=== PATIENT | female | born 1975 | race Caucasian/White ===

== ENCOUNTER 2017-04-22 13:07 | Emergency (ER) | payer BC ==
[~2017-04-22] VITALS: Ht 160 cm; Wt 84.4 kg
[~2017-04-22 13:07] MED LIST: AMOCLA500; ASPI81CH; BUPR100ER PO; CHOL10002; CIPRO500 MG PO; CYAN500; DOCU100; ESCI20; FISH1000; FOLI1; LAMO100 PO; LORA1 PO; MEDR10 PO; METF500 PO; METHYLFOLATE; METO25ER; OMEP10ER; ONDA4ODT; OXYC5; PROC5; PYRI100; Pristiq100 MG PO; ZOLP6.25
[2017-04-22] MEDS ORDERED: Augmentin 875-1 EACH PO (13:30)
== END 2017-04-22 13:33 | disposition home or self-care (01) ==
LOC: ER 13:07
DX: L03.313 Cellulitis of chest wall (principal); Z88.1 Allergy status to other antibiotic agents; Z88.8 Allergy status to other drugs, medicaments and biological substances; Z88.5 Allergy status to narcotic agent; Z79.899 Other long term (current) drug therapy; Z79.84 Long term (current) use of oral hypoglycemic drugs; Z79.82 Long term (current) use of aspirin; Z85.3 Personal history of malignant neoplasm of breast; Z87.891 Personal history of nicotine dependence; Z90.10 Acquired absence of unspecified breast and nipple
CPT/HCPCS: 99282

== ENCOUNTER → 2018-02-24 | Outpatient (CLI) | payer BC ==
[~2018-02-24] MED LIST changes: +Augmentin 875-1 EACH PO
== END | disposition home or self-care (01) ==
LOC: PLD 10:04 → LAB SHORT 10:04
DX: L57.0 Actinic keratosis (principal)
CPT/HCPCS: 88305

== ENCOUNTER → 2019-08-11 | Outpatient (CLI) | payer BC ==
[2019-08-12 11:22] LABS: Candida species (DNA Probe) Negative (NEGATIVE); G. vaginalis (DNA Probe) Negative (NEGATIVE); T. vaginalis (DNA Probe) Negative (NEGATIVE)
== END | disposition home or self-care (01) ==
LOC: LAB 11:45 → LAB SHORT 11:45
PROVIDERS: Obstetrics & Gynecology
DX: N76.0 Acute vaginitis (principal)
CPT/HCPCS: 87480; 87510; 87660

== ENCOUNTER → 2022-11-12 | Outpatient (CLI) | payer OTHER | END | disposition home or self-care (01) | LOC: LAB SHORT 12:46 → PLD 12:46 | DX: L82.0 Inflamed seborrheic keratosis (principal); Z85.3 Personal history of malignant neoplasm of breast | CPT/HCPCS: 88305 ==

== ENCOUNTER 2024-01-12 14:12 | Inpatient (IN) | payer OTHER ==
[~2024-01-12] VITALS: Ht 160 cm; Wt 75.8 kg
[~2024-01-12 14:12] MED LIST changes: -ASPI81CH; +ASPI81CH PO; -CHOL10002; -CYAN500; +CYAN500 PO; -DOCU100; +DOCU100 PO; +FISH OIL 1,0001 EA10 PO; -FISH1000; -LAMO100 PO; +Lamictal200 MG PO; -METHYLFOLATE; -METO25ER; +METO25ER PO; -OMEP10ER; +OMEP20ER PO; -PYRI100; +PYRI100 PO; +VITAMIN D31000 UNI1 PO
[2024-01-12 15:13] LABS: BASOPHILS ABSOLUTE AUTO 0.06 K/mm3 (0.00-0.23); BASOPHILS PERCENT AUTO 1 % (0-2); EOSINOPHILS ABSOLUTE AUTO 0.23 K/mm3 (0.00-0.68); EOSINOPHILS PERCENT AUTO 3 % (0-6); Hematocrit 36.8 % (33.0-51.0); Hemoglobin 12.5 g/dL (11.5-16.0); IMMATURE GRAN ABSOLUTE AUTO 0.14 K/mm3 (0.00-0.10); IMMATURE GRAN PERCENT AUTO 2 % (0-1); LYMPHOCYTES ABSOLUTE AUTO 2.54 K/mm3 (0.84-5.20); LYMPHOCYTES PERCENT AUTO 28 % (21-46); MONOCYTES ABSOLUTE AUTO 0.75 K/mm3 (0.16-1.47); MONOCYTES PERCENT AUTO 8 % (4-13); Mean Corpuscular HGB 29.9 pg (26.0-34.0); Mean Corpuscular Volume 88 fL (80-100); Mean Platelet Volume 8.6 fL (9.1-12.4); NEUTROPHILS ABSOLUTE AUTO 5.42 K/mm3 (1.96-9.15); NEUTROPHILS PERCENT AUTO 59 % (41-73); Platelet Count 285 K/mm3 (150-400); RDW Coefficient Variation 14.6 % (11.7-14.2); RDW Standard Deviation 46.3 fL (35.1-46.3); Red Blood Cell Count 4.18 M/mm3 (3.80-5.20); White Blood Cell Count 9.14 K/mm3 (4.00-11.30)
[2024-01-12 15:25] LABS: Albumin, Blood 3.6 g/dL (3.4-5.0); Albumin/Globulin Ratio 0.9 (0.8-1.8); Bilirubin, Total 0.2 mg/dL (0.1-1.0); Bun/Creatinine Ratio 24.7 (12.0-20.0); Creatinine, Blood 0.73 mg/dL (0.40-1.00); Globulin, Blood 4.2 g/dL (2.2-4.0); Potassium, Blood 4.2 mmol/L (3.5-5.5); Total Protein, Blood 7.8 g/dL (6.4-8.2)
[2024-01-12] MEDS ORDERED: Acetaminophen 500 MG Tab PO ONE (19:20)
[2024-01-12] MEDS ORDERED: Piperacillin/Tazobactam Sod 3.375 GM in NS 100 ML IV ONE (19:20)
[2024-01-12] MEDS ORDERED: FLU VACC TS2024-25(6MOS UP)/PF 45 MCG/0.5 ML SYRINGE IM SCH (19:50)
[2024-01-12] MEDS ORDERED: Ondansetron HCl 2 MG / ML 2ML Vial IV PRN (19:55)
[2024-01-12] MEDS ORDERED: NS 1,000 ML IV SCH (19:55)
[2024-01-12] MEDS ORDERED: OxyCODONE 5 mg/Acetamin 325 mg TABLET PO PRN (19:55)
[2024-01-12] MEDS ORDERED: Zolpidem Tartrate 5 MG Tab PO PRN (19:55)
[2024-01-12] MEDS ORDERED: Sennosides 8.6 MG Tab PO SCH (21:00)
[2024-01-12] MEDS ORDERED: ZOLPIDEM TARTRA10 MG PO (21:35)
[2024-01-12] MEDS ORDERED: WEGOVY0.25 MG/0. SC (21:35)
[2024-01-12] MEDS ORDERED: ROSUVASTATIN CA10 MG PO (21:36)
[2024-01-12] MEDS ORDERED: LEVOFLOXACIN50011 PO (21:38)
[2024-01-12] MEDS ORDERED: SULFAMETHOXAZO1 EAC1 PO (21:39)
[2024-01-12 21:45] VITALS: BP 125/86
[2024-01-12] MEDS ORDERED: Docusate Sodium 100 MG UDC PO SCH (23:00)
[2024-01-12] MEDS ORDERED: Cholecalciferol 1000 Unit Tablet (=25MCG) PO SCH (23:00)
[2024-01-12] MEDS ORDERED: Rosuvastatin Calcium 10 MG Tab PO SCH (23:05)
[2024-01-12] MEDS ORDERED: MetFORMIN HCl 500 mg PO SCH (23:05)
[2024-01-12] MEDS ORDERED: Zolpidem Tartrate 10 MG Tab PO PRN (23:06)
[2024-01-12] MEDS ORDERED: Metoprolol Succinate 25 MG TABCR PO SCH (23:06)
[2024-01-12] MEDS ORDERED: LamoTRIgine 100 MG Tab PO SCH (23:06)
[2024-01-13] VITALS (15 sets, daily range): BP systolic 97–122; BP diastolic 64–81
[2024-01-13] MEDS ORDERED: Piperacillin/Tazobactam Sod 3.375 GM in NS 100 ML IV SCH
[2024-01-13 05:47] LABS: Hematocrit 34.8 % (33.0-51.0); Hemoglobin 11.7 g/dL (11.5-16.0); Mean Corpuscular HGB 29.6 pg (26.0-34.0); Mean Corpuscular HGB Conc 33.6 g/dL (31.5-36.5); Mean Corpuscular Volume 88 fL (80-100); Mean Platelet Volume 8.7 fL (9.1-12.4); Platelet Count 277 K/mm3 (150-400); RDW Coefficient Variation 14.8 % (11.7-14.2); RDW Standard Deviation 47.2 fL (35.1-46.3); Red Blood Cell Count 3.95 M/mm3 (3.80-5.20); White Blood Cell Count 8.16 K/mm3 (4.00-11.30)
[2024-01-13] MEDS ORDERED: Omeprazole 20 MG CapCR PO SCH (06:00)
[2024-01-13 06:16] LABS: Bun/Creatinine Ratio 20.8 (12.0-20.0); Creatinine, Blood 0.67 mg/dL (0.40-1.00); Potassium, Blood 4.2 mmol/L (3.5-5.5)
--- NOTE | 2024-01-13 06:48 | NUR ---
SHIFT SUMMARY PT ARRIVES TO ROOM 325 FROM ER AROUND 2124 VIA WHEELCHAIR. PT TRANSFERS SELF INDEPENDENTLY TO HOSPITAL BED. YANCY IS A&OX4, PLEASANT AND COOPERATIVE. VSS ON RA. C/O PAIN TO LEFT LATTERAL ABD, MANAGED WITH PRN 5 MG PO OXYCODONE. TOLERATED A GEN DIET, BUT CONSTANTLY IS NAUSEOUS. NPO AFTER MN FOR A PROCEDURE THIS MORNING. UP AD BOUCHRA IN ROOM INDEPENDENTLY. VOIDING IN TOILET, NO BM THIS SHIFT. BED IN LOWEST POSITION, CALL LIGHT WITHIN REACH.
[2024-01-13] MEDS ORDERED: Acetaminophen 325 MG TABLET PO PRN (08:45)
[2024-01-13] MEDS ORDERED: LamoTRIgine 100 MG Tab PO SCH (09:00)
[2024-01-13] MEDS ORDERED: Metoprolol Succinate 25 MG TABCR PO SCH (09:00)
[2024-01-13] MEDS ORDERED: Venlafaxine HCl 75 MG CapCR PO SCH (09:00)
--- NOTE | 2024-01-13 12:49 | NUR ---
NOTE PT IS PREOP. I ASKED PT IF SHE IS . PT STATED "OH NO, I HAD A HYSTERECTOMY." TEST NOT COLLECTED.
[2024-01-13] MEDS ORDERED: D5W-1/2NS 1,000 ML IV SCH (13:25)
[2024-01-13] MEDS ORDERED: propofoL 60 ML IV ONE (14:52)
[2024-01-13] MEDS ORDERED: Lactated Ringer's 1,000 ML IV SCH (14:55)
[2024-01-13] MEDS ORDERED: Scopolamine Hydrobromide Patch TD SCH (15:10)
--- NOTE | 2024-01-13 15:10 | NUR ---
PT TO SDS WITH 20G IN RIGHT AC FROM ROOM 325
[2024-01-13] MEDS ORDERED: FentaNYL Citrate 50 MCG/ML 2 ML Injection ONE ×2 (15:12→16:18)
[2024-01-13] MEDS ORDERED: Midazolam HCl 1MG / ML 2ML Vial ONE (15:12)
[2024-01-13] MEDS ORDERED: ROSUVASTATIN CA10 MG PO (15:21)
[2024-01-13] MEDS ORDERED: Bupivacaine 0.5% HCl 5 MG/ML 30MLVIAL ONE (15:42)
[2024-01-13] MEDS ORDERED: Metoclopramide HCl 5MG / ML 2ML Vial ONE (15:47)
[2024-01-13] MEDS ORDERED: Ondansetron HCl 2 MG / ML 2ML Vial ONE (15:47)
[2024-01-13] MEDS ORDERED: Dexamethasone Sod Phos 10 MG/ML 1ML VIAL ONE (15:47)
--- NOTE | 2024-01-13 17:22 | NUR ---
TRANSFER NOTE PT A&OX4. PT TRANSFERED BACK TO ROOM POSTOP. PT ORIENTED TO ROOM. PT HAS FLUIDS RUNNING AT 75ML/HR. PT HAS VISITORS AT BEDSIDE. PT DOESN'T REPORT PAIN OR NAUSEA. POST OP VITALS STARTED. PT ABLE TO MAKE NEEDS KNOWN. PT ON ROOM AIR. CALL LIGHT IN REACH. SURGICAL SITE IS C/D/I WITH GAUZE ON SITE.
[2024-01-13] MEDS ORDERED: NS 250 ML IV PRN (18:15)
--- NOTE | 2024-01-13 19:05 | NUR ---
SHIFT SUMMARY PT A&OX4. PT ADMITED DUE TO POSTOPERATIVE COMPLICATIONS. PT HAD A I&D FOR FLANK ABSCESS DURING SHIFT. POST OP VITALS COMPLETE. PT RESPIRATIONS ARE EVEN AND UNLABORED. PT CURRENTLY HAS ZOCYN RUNNING THROUGH IV. PT LAST BLOOD SUGAR CHECK WAS 188. DEXTROSE FLUIDS WERE STOPPED. PT TOLERATING REGULAR DIET. PT DENIES NAUSEA. PT REPORTS PAIN AT SITE. PAIN MANAGED PER EMAR. GAUZE IS APPLIED OVER WOUND. PT HAS A JERAD DRAIN IN PLACE PER REPORT FROM PACU. VSS. PT CALLS APPROPRIATLEY, CALL LIGHT IN REACH, VISITOR AT BEDSIDE. PT IS INDEPENDENT IN ROOM.
[2024-01-14 04:37] VITALS: BP 115/70
[2024-01-14 05:44] LABS: BASOPHILS ABSOLUTE AUTO 0.03 K/mm3 (0.00-0.23); BASOPHILS PERCENT AUTO 0 % (0-2); EOSINOPHILS ABSOLUTE AUTO 0.03 K/mm3 (0.00-0.68); EOSINOPHILS PERCENT AUTO 0 % (0-6); Hematocrit 34.5 % (33.0-51.0); Hemoglobin 11.9 g/dL (11.5-16.0); IMMATURE GRAN ABSOLUTE AUTO 0.12 K/mm3 (0.00-0.10); IMMATURE GRAN PERCENT AUTO 1 % (0-1); LYMPHOCYTES ABSOLUTE AUTO 1.81 K/mm3 (0.84-5.20); LYMPHOCYTES PERCENT AUTO 13 % (21-46); MONOCYTES ABSOLUTE AUTO 0.81 K/mm3 (0.16-1.47); MONOCYTES PERCENT AUTO 6 % (4-13); Mean Corpuscular HGB 30.1 pg (26.0-34.0); Mean Corpuscular HGB Conc 34.5 g/dL (31.5-36.5); Mean Corpuscular Volume 87 fL (80-100); Mean Platelet Volume 8.4 fL (9.1-12.4); NEUTROPHILS ABSOLUTE AUTO 11.54 K/mm3 (1.96-9.15); NEUTROPHILS PERCENT AUTO 81 % (41-73); Platelet Count 302 K/mm3 (150-400); RDW Coefficient Variation 14.1 % (11.7-14.2); RDW Standard Deviation 44.2 fL (35.1-46.3); Red Blood Cell Count 3.95 M/mm3 (3.80-5.20); White Blood Cell Count 14.34 K/mm3 (4.00-11.30)
--- NOTE | 2024-01-14 05:51 | NUR ---
SHIFT SUMMARY YANCY IS A&OX4, PLEASANT AND COOPERATIVE. VSS ON RA. C/O PAIN TO LEFT LATTERAL ABD, MANAGED WITH PRN 5 MG PO OXYCODONE. DRESSING TO JERAD DRAIN, SATURATED WITH SEROSANGUINEOUS DRAINAGE, CHANGED THE DRESSING. TOLERATED A GEN DIET, BUT CONSTANTLY IS NAUSEOUS. UP AD BOUCHRA IN ROOM INDEPENDENTLY. VOIDING IN TOILET, NO BM THIS SHIFT. BED IN LOWEST POSITION, CALL LIGHT WITHIN REACH.
[2024-01-14 06:13] LABS: Bun/Creatinine Ratio 17.6 (12.0-20.0); Calcium, Blood 9.1 mg/dL (8.5-10.1); Creatinine, Blood 0.63 mg/dL (0.40-1.00); Potassium, Blood 4.1 mmol/L (3.5-5.5)
[2024-01-14 07:54] VITALS: BP 114/76
--- NOTE | 2024-01-14 10:59 | NUR ---
DRESSING CHANGE NOTE CHANGED PT DRESSING ON L LOWER ABD. TRANSPARENT DRESSING WAS LIFTING OFF SKIN. JERAD DRAIN PRESENT. DRESSING HAD SOME SEROSANGUINOUS FLUID ON OUTER DRESSING, AT SITE DRESSING HAD SOME PURULENT DRAINAGE AND SANGUINOUS FLUID. REPLACED DRESSING WITH 4X4 GAUZE AND TRANSPARENT DRESSING. GAVE PT MEDICATION FOR PAIN PER PT REPORTING PAIN ON L LOWER ABD. CALL LIGHT IN REACH.
[2024-01-14] MEDS ORDERED: IRBESARTAN150 M3 PO (13:56)
[2024-01-14] MEDS ORDERED: METF500 PO (14:02)
[2024-01-14] MEDS ORDERED: METHYLFOLATE PO (14:03)
[2024-01-14] MEDS ORDERED: SULTRIDS PO (14:42)
--- NOTE | 2024-01-14 16:12 | NUR ---
DISCHARGE NOTE PT A&OX4. PT ADMITTED DUE TO POSTOPERATIVE COMPLICATION. PT POST OP DAY 1 FROM A I&D YESTERDAY. PT EDUCATED ON DISCHARGE INSTRUCTIONS/EDUCATION/MEDS. PT VERBALIZED UNDERSTANDING OF INSTRUCTIONS. PT STATED WILL FOLLOW UP WITH PHYSICIAN AND WILL DO DRESSING CHANGES ONCE A DAY. MEDS FAXED TO PREFERED PHARMACY. IV WAS REMOVED. PT DRESSED SELF. PT WENT HOME WITH PERSONAL BELONGINGS. SENT PT HOME WITH WOUND CHANGE SUPPLIES. PT ESCORTED BY WHEELCHAIR TO [facility].
== END 2024-01-14 16:20 | disposition home or self-care (01) | DRG 920 ==
LOC: ER 14:12 → MEDS 19:45
PROVIDERS: Emergency Medicine; Internal Medicine; Nurse Practitioner Acute Care; Surgery; ADMIT Student in an Organized Health Care Education/Training Program
PROC: 0W9F30Z Drainage of Abdominal Wall with Drainage Device, Percutaneous Approach (ICD-10-PCS; principal; 2024-01-13 15:00)
DX: L76.34 Postprocedural seroma of skin and subcutaneous tissue following other procedure (principal); L02.211 Cutaneous abscess of abdominal wall; Y83.8 Other surgical procedures as the cause of abnormal reaction of the patient, or of later complication, without mention of misadventure at the time of the procedure; I10 Essential (primary) hypertension; E66.9 Obesity, unspecified; E11.9 Type 2 diabetes mellitus without complications; F32.A Depression, unspecified; E78.5 Hyperlipidemia, unspecified; G47.00 Insomnia, unspecified; Z85.3 Personal history of malignant neoplasm of breast; K21.9 Gastro-esophageal reflux disease without esophagitis; Z90.13 Acquired absence of bilateral breasts and nipples; Z98.890 Other specified postprocedural states; Z88.8 Allergy status to other drugs, medicaments and biological substances; Z88.1 Allergy status to other antibiotic agents; Z79.84 Long term (current) use of oral hypoglycemic drugs; Z79.899 Other long term (current) drug therapy; Z68.29 Body mass index [BMI] 29.0-29.9, adult
CPT/HCPCS: 36415; 72193; 80048; 80053; 82947; 85025; 85027; 87070; 87075; 87205; 96374-59; 99284-25; A9270; J1100; J2250; J2405; J2543; J2704; J2765; J3010; J7030; J7042; J7050; J7120; Q9967

== ENCOUNTER → 2024-03-08 | Outpatient (CLI) | payer OTHER ==
[~2024-03-08] MED LIST changes: +IRBESARTAN150 M3 PO; +LEVOFLOXACIN50011 PO; +METHYLFOLATE PO; +ROSUVASTATIN CA10 MG PO; +SULFAMETHOXAZO1 EAC1 PO; +SULTRIDS PO; +WEGOVY0.25 MG/0. SC; +ZOLPIDEM TARTRA10 MG PO
[2024-03-08 18:48] LABS: Bacterial Vaginosis PCR Negative (NEGATIVE); Candida Group, PCR NOT DETECTED (NOT DETECT); Candida glabrata-krusei, PCR NOT DETECTED (NOT DETECT)
== END ==
LOC: LAB SHORT 15:49 → LAB 15:49
PROVIDERS: Physician Assistant
DX: N89.8 Other specified noninflammatory disorders of vagina (principal)
CPT/HCPCS: 87481; 87661; 87801

== ENCOUNTER → 2024-06-11 | Outpatient (CLI) | payer OTHER | LOC: LAB 15:37 → LAB SHORT 15:37 | DX: R30.0 Dysuria (principal) | CPT/HCPCS: 87077; 87086; 87186 ==